=== PATIENT | female | born 1955 | race Caucasian/White ===

== ENCOUNTER 2017-01-13 09:05 | Emergency (ER) | payer MEDICARE, OTHER ==
[~2017-01-13] VITALS: Ht 162.6 cm; Wt 63.5 kg
[~2017-01-13 09:05] MED LIST: LEVO125T8 PO; MS CONTIN PO; SUMA100T PO
[2017-01-13 10:27] VITALS: BP 141/71
--- NOTE | 2017-01-13 10:27 | NUR ---
PT WAS EVALUATED BY DR RODRÍGUEZ. PT WAS D/C TO HOME. D/C INSTRUCTIONS GIVEN TO THE PT.
== END 2017-01-13 10:28 | disposition home or self-care (01) ==
LOC: ER 09:05
DX: S89.91XA Unspecified injury of right lower leg, initial encounter (principal); S13.4XXA Sprain of ligaments of cervical spine, initial encounter; E03.9 Hypothyroidism, unspecified; M06.9 Rheumatoid arthritis, unspecified; F10.20 Alcohol dependence, uncomplicated; G43.909 Migraine, unspecified, not intractable, without status migrainosus; Z85.41 Personal history of malignant neoplasm of cervix uteri; Z90.710 Acquired absence of both cervix and uterus; Z85.828 Personal history of other malignant neoplasm of skin; Z88.8 Allergy status to other drugs, medicaments and biological substances; W18.30XA Fall on same level, unspecified, initial encounter; Y93.89 Activity, other specified; Y99.8 Other external cause status; Y92.89 Other specified places as the place of occurrence of the external cause
CPT/HCPCS: A4663